=== PATIENT | male | born 1995 | race Two or more races ===

== ENCOUNTER 2021-08-31 18:33 | Emergency (ER) | payer OTHER ==
[~2021-08-31] VITALS: Ht 172.7 cm; Wt 63.5 kg
[2021-08-31] MEDS ORDERED: KETOROLAC TROMETHAMINE 60 MG INJ IM ONE ×2 (19:00→19:27)
[2021-08-31] MEDS ORDERED: ACETAMINOPHEN ES 500 MG TABLET PO ONE (19:00)
--- NOTE | 2021-08-31 19:20 | NUR ---
Dr. Morrissey at bedside, MSE in progress.
[2021-08-31] MEDS ORDERED: ACETAMINOPHEN ES 500 MG TABLET ONE (19:27)
[2021-08-31] MEDS ORDERED: ONDANSETRON ODT 4 MG TAB.RAPDIS ONE (19:30)
[2021-08-31] MEDS ORDERED: ONDANSETRON ODT 4 MG TAB.RAPDIS SL ONE (19:30)
--- NOTE | 2021-08-31 21:21 | NUR ---
Patient discharged to home in stable condition. Written and verbal after care instructions given. Patient verbalizes understanding of instructions. Stressed follow up or return to ER for worsening s/s. pt ambulated with steady gait. denies pain. no SOB. no chest pain. AOx4
[2021-08-31 21:23] VITALS: BP 105/68
== END 2021-08-31 21:27 | disposition home or self-care (01) ==
LOC: ER 18:33
DX: U07.1 COVID-19 (principal); R51.9 Headache, unspecified; Z28.310 Unvaccinated for COVID-19
CPT/HCPCS: 99283; 87426; 87400; 96372; J1885; A4663; A9150; Q0162